=== PATIENT | female | born 1985 | race Caucasian/White ===

== ENCOUNTER 2022-01-10 16:43 | Emergency (ER) | payer OTHER ==
[2022-01-10 17:12] LABS: HEMOGLOBIN 14.3 gm/dl (12.3-15.3); RED BLOOD COUNT 4.94 M/UL (4.00-5.10); WHITE BLOOD COUNT 8.6 K/UL (4.5-11.0)
[2022-01-10 17:33] LABS: BUN/CREATININE RATIO 19 (0-10)
== END 2022-01-10 21:23 | disposition home or self-care (01) ==
LOC: ER1 16:43
PROVIDERS: Nurse Practitioner
DX: R07.9 Chest pain, unspecified (principal); Z20.822 Contact with and (suspected) exposure to COVID-19; I10 Essential (primary) hypertension
CPT/HCPCS: 0240U; 71045; 80053; 81001; 82550; 82553; 84484; 84703; 85025; 93005; 99285; Q9967